=== PATIENT | female | born 1935 | race Caucasian/White ===

== ENCOUNTER 2023-10-19 09:24 | Outpatient (AMB) | payer MEDICARE, SELFPAY ==
--- NOTE | 2023-10-19 09:25 | AM.OFFWIN_ITS ---
Intake Vital Signs 10/19/23 09:26 Height 5 ft 3 in Weight 158 lb BMI 28.0 BP 120/60 Blood Pressure Location Lt brachial Position Sitting Pulse 72 Pulse Source Pulse Oximeter Temp 97.6 F Temp Source Temporal Artery Scan Pulse Oximetry (%) 95 Oxygen Delivery Method Room Air Intake Visit Reasons: EP cold symptoms Intake Note: pt is here today for cold symptoms started 3 days ago Patient Tobacco Use Status: Former Tobacco user Allergies No Known Allergies Allergy (Verified 10/19/23 09:29) Do you need a note to return to daycare/school/sports/work: No HPI HPI Comments History of Present Illness Details 88 y/o female patient who presents to [facility] with c/o URI symptoms that started 3 days ago. Reports runny nose, nasal congestion, sneezing, cough and sire-throat. She has been taking OTC Acetaminophen with minimal relief. Reports fever yesterday around 100.5 F PFSH Social History Patient Tobacco Use Status: Former Tobacco user Review of Systems Const All systems reviewed & are unremarkable except as noted in HPI and below Physical Exam Vital Signs: Last Vital Signs Temp 97.6 F 10/19/23 09:26 Pulse 72 10/19/23 09:26 BP 120/60 10/19/23 09:26 Pulse Ox 95 10/19/23 09:26 Oxygen Delivery Method Room Air 10/19/23 09:26 BMI result Body Mass Index 28.0 Const General: comfortable and no acute distress Nutritional Appearance: obese Orientation/consciousness: patient oriented x3 HEENT Head: Yes normocephalic Ears: external ears normal and TM abnormal obstructed by cerumen bilateral General nose exam: Abnormal mucous membranes and turbinates present boggy and erythematous and Nasal discharge present Face and sinus: Yes sinuses nontender Mouth: moist mucous membranes Throat: Yes posterior oropharynx normal Resp Effort & Inspection: normal respiratory effort, able to speak in complete sentences and Actively coughing Auscultation: clear to auscultation bilaterally, no crackles, no rales, no rhonchi and no wheezes Cardio Rate: regular rate Rhythm: regular rhythm Neuro General: patient oriented x3, gait normal and moves all extremities Psych Speech and movement: Normal speech and movement present Results AMB Rapid Strep AMB Rapid Strep Negative Last Edit by Meme Bansal MA on 10/19/23 09:42 Assessment & Plan Assessment & Plan (1) Upper respiratory infection: Code(s): J06.9 - Acute upper respiratory infection, unspecified Qualifiers: URI type: acute nasopharyngitis (common cold) Qualified Code(s): J00 - Acute nasopharyngitis [common cold] Plan: - OTC cold and flu remedies - Rest and hydrate well with warm fluids - Acetaminophen for pain relief - SARs Orders: Orders SARS-CoV2/FLU/RSV Today J00 - Acute nasopharyngitis [common cold], R09.89 - Other specified symptoms and signs involving the circulatory and respiratory systems Medications: New phenylephrine HCl 1% 2 drps intranasal Q8H 3 days PRN 30 mL 0RF nasal congestion J00 - Acute nasopharyngitis [common cold] BG-gwtcqwcofuezp-FQ 10-325-200 mg/15 mL (Coricidin HBP Max Wswi-Zjp-Ghj) do not exceed 5 doses per 24 hrs 30 mL PO Q4-6H PRN 355 mL 0RF cough J00 - Acute nasopharyngitis [common cold] Coding Level of Care Code Est Pt Level 3 (47956) Diagnoses Acute nasopharyngitis J00 URI type: acute nasopharyngitis (common cold) Time Spent (min) 15
[2023-10-19 09:26] VITALS: BP 120/60; PULSE 72; TEMP 36.4; O2SAT 95; BMI 28.0
== END 2023-10-19 10:29 | disposition home or self-care (01) ==
PROVIDERS: PCP Internal Medicine Endocrinology, Diabetes & Metabolism; Visit Provider Nurse Practitioner Family
DX: J00 Acute nasopharyngitis [common cold] (principal)
CPT/HCPCS: 99213

== ENCOUNTER 2023-10-19 09:52 | Outpatient (REF) | payer MEDICARE, SELFPAY ==
[2023-10-19 14:46] LABS: Influenza A PCR NEGATIVE (Negative); Influenza B PCR NEGATIVE (Negative); Resp Syncy Virus RNA Qual PCR NEGATIVE (Negative); SARS COV2 PCR INHOUSE NEGATIVE (Negative)
== END 2023-10-19 09:53 | disposition home or self-care (01) ==
LOC: HO.LAB 09:52
PROVIDERS: Visit Provider Nurse Practitioner Family
DX: J00 Acute nasopharyngitis [common cold] (principal); R09.89 Other specified symptoms and signs involving the circulatory and respiratory systems; J06.9 Acute upper respiratory infection, unspecified
CPT/HCPCS: 0241U

== ENCOUNTER 2025-02-25 11:15 | Outpatient (AMB) | payer MEDICARE, SELFPAY ==
--- NOTE | 2025-02-25 11:36 | AM.OFFWIN_ITS ---
Intake Vital Signs 02/25/25 11:42 Height 5 ft 3 in Weight 133 lb BMI 23.6 BP 162/60 H Blood Pressure Location Lt brachial Position Sitting Pulse 69 Pulse Source Pulse Oximeter Temp 97.8 F Temp Source Oral Pulse Oximetry (%) 97 Oxygen Delivery Method Room Air Intake Visit Reasons: ep possibe uti Intake Note: pt presents with urine frequency. unable to check medications- pt unsure of what she is taking Patient Tobacco Use Status: Former Tobacco user Allergies No Known Allergies Allergy (Verified 02/25/25 11:43) Do you need a note to return to daycare/school/sports/work: No HPI HPI Comments History of Present Illness Details History - The patient is an 89-year-old female p resenting with frequent urination. - She reports urinating frequently at rust, approximately every hour from 1 AM to 5 AM, without associated burning or pain. - The patient has a history of Diabetes Mellitus, managed with a weekly injection, and her recent blood sugar level was 176 mg/dL. She is not sure what her last A1c. 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 - The patient experienced vertigo in [place], which led to multiple falls and a backache. - She has no back pain, hematuria, CP, S OB, abd pain, vaginal discharge, or bleeding. Physical Exam General: Cooperative, healthy appearing, comfortable, no acute distress and well developed Cardiac: Normal S1 and S2. RRR, no M/R/G noted. Respiratory: Normal respiratory effort and able to speak in complete sentences. Clear to auscultation bilaterally. No w/r/r noted. Skin: No rashes or lesions noted. GI: Normal inspection. Normal BS noted. Soft, non-tender, non-distended. No TTP of all 4 quadrants. No guarding or rebound tenderness noted. Back: Negative CVA bilaterally Patient was informed and verbally consented to the use of an ambient scribe for clinic note documentation during this visit. [facility] Social History Patient Tobacco Use Status: Former Tobacco user Review of Systems Const All systems reviewed & are unremarkable except as noted in HPI and below Physical Exam Vital Signs: Last Vital Signs Temp 97.8 F 02/25/25 11:42 Pulse 69 02/25/25 11:42 BP 162/60 H 02/25/25 11:42 Pulse Ox 97 02/25/25 11:42 Oxygen Delivery Method Room Air 02/25/25 11:42 BMI result Body Mass Index 23.6 Results AMB Random Glucose (hemocue) AMB Random Glucose (hemocue) 134 mg/dL Last Edit by Arlin Root MA on 02/25/25 14:50 AMB Urinalysis, Automated UA Leukoctes 0 Katia/uL Last Edit by Arlin Root MA on 02/25/25 14:55 UA Nitrite Last Edit by Arlin Root MA on 02/25/25 14:55 UA Urobilinogen 0.2 mg/dL Last Edit by Arlin Root MA on 02/25/25 14:55 UA Protein 30 mg/dL Last Edit by Arlin Root MA on 02/25/25 14:55 1+ Arlin Root 02/25/25 14:55 UA pH 6.0 Last Edit by Arlin Root MA on 02/25/25 14:55 UA Blood 0 Vasquez/uL Last Edit by Arlin Root MA on 02/25/25 14:55 UA Specific Stewart 1.025 Last Edit by Arlin Root MA on 02/25/25 14:5 5 UA Ketone Negative Last Edit by Arlin Root MA on 02/25/25 14:55 UA Bilirubin 0 mg/dL Last Edit by Arlin Root MA on 02/25/25 14:55 UA Glucose 0 mg/dL Last Edit by Arlin Root MA on 02/25/25 14:55 Results Reviewed Results Reviewed: Laboratory Last Values Random Glu (Clinic) 134 mg/dL 02/25/25 12:35 Urine pH (Auto) 6.0 02/25/25 14:53 Specific Stewart (Auto) 1.025 02/25/25 14:53 Urine Protein (Auto) 30 mg/dL H* 02/25/25 14:53 Glucose (UA)(Auto) 0 mg/dL 02/25/25 14:53 Urine Ketones (Auto) Negative 02/25/25 14:53 Urine Blood (Auto) 0 Vasquez/uL 02/25/25 14:53 Urine Bilirubin (Auto) 0 mg/dL 02/25/25 14:53 Urine Urobilinogen (Auto) 0.2 mg/dL 02/25/25 14:53 Leukocyte Esterase (Auto) 0 Katia/uL 02/25/25 14:53 Assessment & Plan Assessment & Plan (1) Polyuria: Code(s): R35.89 - Other polyuria Plan Most likely UTI vs hyperglycemia vs polyuria due to HCTZ UA 1+protein glucose 134 in the office plan - limit her fluids after 7pm before bed - check her blood sugars daily and record - continue with her medications - needs to follow up with PCP - may need to see urology Orders: Orders AMB Urinalysis Automated Today Z13.9 - Encounter for screening, unspecified Urine Culture Today N39.0 - Urinary tract infection, site not specified AMB Hemoglobin A1c Today R35.89 - Other polyuria AMB Random Glucose (hemocue) Today R35.89 - Other polyuria Coding Level of Care Code Est Pt Level 3 (77637) Diagnoses Polyuria R35.89
[2025-02-25 11:42] VITALS: BP 162/60; PULSE 69; TEMP 36.6; O2SAT 97; BMI 23.6
== END 2025-02-25 13:22 | disposition home or self-care (01) ==
PROVIDERS: PCP Internal Medicine Endocrinology, Diabetes & Metabolism; Visit Provider Physician Assistant Medical
DX: Z13.9 Encounter for screening, unspecified (principal); R35.89 Other polyuria

== ENCOUNTER 2025-02-25 11:15 | Outpatient (REF) | payer MEDICARE, SELFPAY ==
--- OUTSIDE RECORDS SUMMARY | 2025-02-25 17:55 | XMS_ITS ---
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 Name Role Phone Alcira Watkins Unavailable Unavailable Noni Chacko Unavailable Unavailable Allergies and adverse reactions No Known Allergies Care Team Name Role Address Phone Organization Dates Alcira Watkins PCP [address] [facility] [address], [place], [address], [place] (Office): : [facility] 11/16/2023 - 12/12/2023 Noni Chacko MA, [facility] 11/16/2023 - 12/12/2023 Immunizations Immunization Status Vaccine Details Vaccine Code CodeSystem Date Notes Covid-19 6426-0805 cancelled SARS-COV-2 (COVID-19) vaccine, mRNA, spike protein, LNP, preservative free, 50 mcg/0.5 mL dose 312 CVX created date: 11/07/2023 consent date: 11/07/2023 PVC20 cancelled Pneumococcal conjugate vaccine 20-valent (PCV20), polysaccharide [id number] conjugate, adjuvant, preservative free 216 CVX created date: 11/07/2023 consent date: 11/07/2023 Influenza, high dose seasonal completed Influenza, high-dose, split virus, trivalent, injectable, preservative free 135 CVX created date: 11/07/2023 administere d date: 03/29/2023 Mental Status Section Date Assessment Total Score Description 12/12/2023 BIMS 14 cognitively int act CAM 0 No delirium ind icated PHQ-9 00 11/21/2023 BIMS 14 cognitively int act CAM 0 No delirium ind icated PHQ-9 00 Problems Problem # Description Date of onset Resolved Date Code CodeSystem Concern Status 1 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 12/20/[address] active 2 DIFFICULTY IN WALKING, NOT ELSEWHERE CLASSIFIED 11/16/[address] active 3 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 11/16/[address] active 4 UNSTEADINESS ON FEET 11/16/[address] active 5 HYPOTHYROIDISM, UNSPECIFIED 11/07/[address] active 6 MUSCLE WEAKNESS (GENERALIZED) 11/07/[address] active 7 OTHER ABNORMALITIES OF GAIT AND MOBILITY 11/07/[address] active 8 OTHER REDUCED MOBILITY 11/07/[address] active 9 UNSPECIFIED LACK OF COORDINATION 11/07/[address] active 10 ACUTE BRONCHITIS DUE TO RHINOVIRUS 11/06/[address] active 11 ENCEPHALOPATHY, UNSPECIFIED 11/06/[address] active 12 HYPERLIPIDEMIA, UNSPECIFIED 11/06/[address] active 13 HYPERTENSIVE EMERGENCY 11/06/[address] active 14 MYOCARDIAL INFARCTION TYPE 2 11/06/[address] active Reason for Referral No Reasons for Referral Entered Social History Social History Observation Description Start Date End Date Code Code System Current Smoking Status Tobacco smoking consumption unknown 719538553 SNOMED CT Sex Assigned At Female 1935 43531-3 [facility] Gender Identity Vital Signs Code Code System Vitals Name Values and Units Timing Information 9279-1 [facility] Respiratory Rate Value=18.0 Units=/m in 12/12/2023 8462-4 [facility] Blood Pressure-Diastolic Value=68 Un its=mmHg 12/12/2023 8480-6 [facility] Blood Pressure-Systolic Qdvrr=275 Un its=mmHg 12/12/2023 8310-5 [facility] Body Temperature Value=97.4 Units= F 12/12/2023 8867-4 [facility] Heart rate Value=96.0 Units=/min 96186-3 [facility] O2 % BldC Oximetry Value=98.0 Units= % 12/12/2023 34121-1 [facility] Pain Level Value=0.0 12/12/2023 2339-0 [facility] Blood Sugar Imeqt=744.0 Units=mg/dL 12/04/2023 34739-8 [facility] Weight Biwbo=296.4 Units=Lbs 10/2023 8302-2 [facility] Height Value=65.0 Units=Inches 11/07/2023
--- OUTSIDE RECORDS SUMMARY | 2025-02-25 17:55 | XMS_ITS | Clinical Summary ---
Author Organization [facility] Address [address] [place] [address] Phone Care Team Providers Care Employment Specialist Name Role Phone Chuy Fleming MD Primary Care Provider Allergies No known active allergies Medications isosorbide mononitrate (IMDUR) 60 mg 24 hr tabletIndications:Co ronary arteriosclerosis Take 1 tablet (60 mg total) by mouth 1 (one) time each day. Do not crush or chew. 90 each 3 08/15/19 25 026 Active hydrALAZINE (APRESOLINE) 100 mg tablet Take 1 tablet (100 mg total) by mouth 3 (three) times a day. 180 tablet 3 08/15/19 25 Active levothyroxine (SYNTHROID, LEVOTHROID) 75 mcg tablet Take 1 tablet (75 mcg total) by mouth 1 (one) time each day before breakfast. 90 tablet 3 08/15/19 25 Active metoprolol succinate (TOPROL-XL) 25 mg 24 hr tablet Take 1 tablet (25 mg total) by mouth 1 (one) time each day. Do not crush or chew. Active amLODIPine (NORVASC) 10 mg tablet Take 1 tablet (10 mg total) by mouth 1 (one) time each day. Active aspirin 81 mg EC tablet Take 1 tablet (81 mg total) by mouth 1 (one) time each day. Active polyethylene glycol (Miralax) 17 gram packet Take 17 g by mouth if needed. Active dulaglutide (Trulicity) 0.75 mg/0.5 mL pen injector injection Inject 0.5 mL (0.75 mg total) under the skin every 7 (seven) days. Active fluorometholone (FML) 0.1 % ophthalmic suspension Administer 1 drop into the right eye at bedtime. Active latanoprost (XALATAN) 0.005 % ophthalmic solution Administer 1 drop into both eyes at bedtime. Active acetaminophen (TYLENOL) 325 mg tablet Take 2 tablets (650 mg total) by mouth every 6 (six) hours if needed for mild pain. Active atorvastatin (LIPITOR) 40 mg tablet Take 1 tablet (40 mg total) by mouth at bedtime. 90 tablet 3 12/20/19 25 Active Active Problems Problem Noted Date Diagnosed Date Coronary arteriosclerosis 05/12/2024 Assessment & Plan (12/19/2024 1:34 PM EDT): Patient denies any exertional anginal symptoms at this time. She has history of NSTEMI and nuclear stress testing showing no evidence of ischemia. She continues on medical therapy. Assessment & Plan (08/15/2024 2:57 PM EST): Patient with several non-ST segment myocardial infarction's with nuclear stress testing showing no definitive evidence for ischemia. No symptoms of angina. No heart failure symptoms at this time the patient will continue medical management we are increasing her Imdur back to 60 mg a day. Mainly to help her with her blood pressure management. There is no evidence of orthostasis. Her falls seem to be mechanical and she is in the process of having physical therapy and vestibular therapy performed. We can bring her back in 4 months to reassess her blood pressure to ensure that we are getting that under control. Her episodes of infarct appear to be demand ischemic Orders: isosorbide mononitrate (IMDUR) 60 mg 24 hr tablet; Take 1 tablet (60 mg total) by mouth 1 (one) time each day. Do not crush or chew. HTN (hypertension) 04/12/2024 Assessment & Plan (12/19/2024 1:34 PM EDT): Patient is well pressure is elevated today with a reading of 180/60. She is no longer taking midodrine and is no longer having issues with dizziness. She is on multiple blood pressure agents including hydralazine, amlodipine, isosorbide and metoprolol. Is following with nephrology closely for management of her hypertension. Assessment & Plan (05/12/2024 3:58 PM EST): Patient's blood pressure today is poorly controlled 158/42. She has had several blood pressure medication changes due to LIEN during her hospitalization in October 2023. At her last office visit her Imdur was increased to 60 mg daily. At this time she is at max dose of amlodipine, high dose of hydralazine and 60 mg of Imdur. As the patient had a fall after the last increase of Imdur will hold off on further up titration. Will repeat CMP to evaluate creatinine and have patient keep follow-up in 2 weeks with roof technician for further blood pressure management suggestions. Erika will continue to monitor blood pressure and will have subsequent follow-up with primary putty worker after referral. Orders: Comprehensive metabolic panel; Future Comprehensive metabolic panel NSTEMI (non-ST elevated myoc ardial infarction) (CMS/HCC V24, CMS/HCC V28) 04/12/2024 Assessment & Plan (12/19/2024 1:34 PM EDT): Patient was hospitalized October 2023 and found to have elevated troponins, this was thought to have been secondary to hypertensive emergency. Patient had a subsequent nuclear stress test with nuclear imaging revealing no areas of ischemia or infarction. This test did show heavy coronary artery calcification noted in the LAD/LCx territory, consistent with nonobstructive coronary disease. She is also on low-dose beta-mandi however if she does have history of first- degree AV block. We will continue to monitor this. I have reviewed with the patient the importance of a heart healthy lifestyle which includes eating a low-fat low-salt diet, getting regular exercise, maintaining a healthy weight, not smoking, and following up with routine medical care. Assessment & Plan (05/12/2024 3:58 PM EST): Patient was hospitalized October 2023 and found to have elevated troponins, this was thought to have been secondary to hypertensive emergency. Patient had a subsequent nuclear stress test with nuclear imaging revealing no areas of ischemia or infarction. This test did show heavy coronary artery calcification noted in the LAD/LCx territory, consistent with nonobstructive coronary disease. She continues on aspirin and atorvastatin for cardio protective medications. She was taken off of beta-mandi due to prolonged first-degree AV block. I have reviewed with the patient the importance of a heart healthy lifestyle which includes eating a low-fat low-salt diet, getting regular exercise, maintaining a healthy weight, not smoking, and following up with routine medical care. Bradycardia 04/12/2024 First degree AV block 04/12/2024 Assessment & Plan (05/12/2024 3:58 PM EST): Patient completed recent 24-hour Holter monitor as described above showing supraventricular ectopy 4.1%. She was previously on a beta-mandi that was discontinued during her hospitalization due to first-degree AV block. She had an episode where she did feel her heart racing, yet she checked her pulse and it was at 78 bpm. It was not long-lasting. Advised patient that if she has increased feelings of palpitations or new symptoms to call the office and we will reevaluate with further monitoring and possible EP consult. RBBB 04/12/2024 Hyperlipidemia 03/10/2024 Assessment & Plan (12/19/2024 1:34 PM EDT): Cholesterol levels are well-controlled. Continue with statin as prescribed. Stage 3 chronic kidney disease ([facility] V24, [facility] V28) 10/12/2023 Glaucoma 05/01/2022 Legal blindness 05/01/2022 Carotid artery stenosis 05/01/2022 Hypothyroidism 05/01/2022 Peripheral vascular disease ([facility] V24) 2021 Type 2 diabetes mellitus ([facility] V24, [facility] V 28) 01/27/2022 Resolved Problems Problem Noted Date Diagnosed Date Resolved Date Influenza A 08/26/2024 12/19/2024 Dizziness 06/24/2024 12/19/2024 Coronary artery disease invo lving quileute coronary artery of quileute heart without angina pectoris 05/12/2024 12/19/2024 Assessment & Plan (05/12/2024 3:58 PM EST): See NSTEMI plan Hypertensive emergency 04/12/202412/19 Assessment & Plan (08/15/2024 2:57 PM EST): Not surprisingly the patient's blood pressure is up they cut back on her medication in the emergency room for the inappropriate reason she is not orthostatic based on diastolic blood pressures. TIA (transient ischemic attack) 04/12/2024 06/25/2024 HLD (hyperlipidemia) 04/12/2024 025 Assessment & Plan (05/12/2024 3:58 PM EST): Continue on atorvastatin. LDL cholesterol from February 2024 was 48 which is in goal range. Elevated troponin 04/12/2024 12/19/2024 Essential hypertension 01/27/202212/19 Encounters Date Type Department Care Team Description 01/30/2025 Telephone [facility] [address] [facility] [address] [place] [address] Chuy Fleming MD 12/19/2024 1:10 PM EDT Office Visit [facility] [address] [facility] [address] [place] [address] Aylin Alvarado NP Coronary arteriosclerosis (Primary Dx); Heart murmur; Primary hypertension; NSTEMI (non-ST elevated myocardial infarction) (CMS/HCC V24, CMS/HCC V28); Mixed hyperlipidemia from Last 3 Months Surgical History Surgery Date Site/Laterality Comments CAROTID ENDARTERECTOMY Right CORNEAL TRANSPLANT Right Medical History Medical History Date Comments Hypertensive emergency 03/11/2024 TIA (transient ischemic attack) 03/11/2024 Rbbb 03/11/2024 With Left Anteri or Fascicular Block NSTEMI (non-ST elevated myoc ardial infarction) (CMS/HCC V24, CMS/HCC V28) 03/10/2024 Elevated troponin 03/10/2024 Bradycardia 03/10/2024 Hypertension 03/10/2024 First degree AV block 03/10/2024 HLD (hyperlipidemia) 03/10/2024 Diabetes mellitus (CMS/HCC V 24, CMS/HCC V28) Hypothyroidism Chronic kidney disease, stag e 3 ([facility] V24, [facility] V28) Carotid artery stenosis Dizziness 06/24/2024 Influenza A 08/26/2024 Family History Medical History Relation Name Comments No Known Problems Mother Diabetes Other Relation Name Status Comments Mother Other Social History Tobacco Use Types Packs/Day Years Used Date Smoking Tobacco: Former Cigarettes Smokeless Tobacco: Never Tobacco Cessation:Counseling Given: Not Answered Alcohol Use Standard Drinks/Week Comments Never 0 (1 standard drink = 0.6 oz pur e alcohol) Interpersonal Safety Answer Date Record ed Physical Abuse 08/27/2024 Verbal Abuse 08/27/2024 Comments No Sex and Gender Information Value Date Recorded Sex Assigned at Female 08/26/2024 11:12 AM EST Legal Sex Female 1:36 PM EDT Gender Identity Female 08/26/2024 11:12 AM EST Sexual Orientation Straight 08/26/2024 11 :12 AM EST Obstetrics History Last Filed Vital Signs Vital Sign Reading Time Taken Comments Blood Pressure 180/60 12/19/2024 12:59 PM EDT Pulse 71 12/19/2024 12:59 PM EDT Temperature 36.4 C (97.6 F) 08/27/2024 12:06 PM EST Respiratory Rate 16 08/27/2024 12:06 PM EST Oxygen Saturation 98% 12/19/2024 12:59 PM EDT Inhaled Oxygen Concentration - - Weight 61.9 kg (136 lb 6.4 oz) 12/19/2024 12:59 PM EDT Height 160 cm (5' 3 ) 12/19/2024 12:59 PM EDT Body Mass Index 24.16 12/19/2024 12:59 PM EDT Plan of Treatment Upcoming Encounters Date Type Department Care Team (Late st Contact Info) Description 04/03/2025 9:00 AM EDT Ancillary Procedure [facility] [address] [facility] [address] [place] [address] Health Maintenance Due Date Last Done Comments Diabetes: Annual Foot Exam 1945 Diabetes: Annual Retina Eye Exam 1945 DTaP,Tdap,and Td Vaccines (1 - Tdap) 1954 Pneumococcal Vaccine: 50+ Years (1 of 2 - PCV) 1954 Zoster Vaccines (1 of 2) 1954 RSV Immunization Adult Patients (1 - 1-dose 75+ series) 2010 COVID-19 Vaccine (2 - Pfizer risk series) 05/31/2021 05/10/2021 Medicare Annual Wellness Visit 01/16/2024 Osteoporosis Screening (Bone Density Screening) 01/16/2024 Social Influencers of Health Screening 01/16/2024 Depression Screening 06/25/2024 Diabetes: Blood Sugar Control Test (HGBA1C) 12/22/2024 06/24/2024 Influenza Vaccine (#1) 2025 03/29/2023, 2021 Falls Risk Assessment 08/27/2025 08/27/2024 Hypertension/CHF/CAD Annual BMP Blood Test 08/27/2025 08/27/2024, 08/26/2024, 07/31/2024, Additional history exists Cholesterol Screening (Lipid Panel) 06/25/2029 06/25/2024 HIB Vaccines Aged Out No longer eligi ble based on patient's age to complete this topic HPV Vaccines Aged Out No longer eligi ble based on patient's age to complete this topic Hepatitis A Vaccines Aged Out No long er eligible based on patient's age to complete this topic Hepatitis B Vaccines Aged Out No long er eligible based on patient's age to complete this topic IPV Vaccines Aged Out No longer eligi ble based on patient's age to complete this topic MMR Vaccines Aged Out No longer eligi ble based on patient's age to complete this topic Meningococcal ACWY Vaccine Aged Out N o longer eligible based on patient's age to complete this topic Meningococcal B Vaccine Aged Out No l onger eligible based on patient's age to complete this topic RSV Immunization Patients Under 20 months Aged Out No longer eligible based on patient's age to complete this topic Varicella Vaccines Aged Out No longer eligible based on patient's age to complete this topic Procedures Procedure Name Priority Date/Time Associated Diagnosis Comments BASIC METABOLIC PANEL Routine 08/27/2024 5:59 AM EST LIPID PANEL WITH REFLEX TO DIRECT LDL Routine 06/25/2024 6:15 AM EST HEMOGLOBIN A1C Add-On 06/24/2024 3:16 PM EST from Last 3 Months or Most Recently Relevant to Health Maintenance Results * (ABNORMAL) Basic metabolic panel (08/27/2024 5:59 AM EST) Sodium 141 133 - 145 mmol/L LAB CHEMISTRY METHOD 08/27/2024 8:00 AM [facility] Potassium 3.8 3.5 - 5.5 mmol/L LAB CHEMISTRY METHOD 08/27/2024 8:00 AM [facility] Chloride 106 96 - 110 mmol/L LAB CHEMISTRY METHOD 08/27/2024 8:00 AM [facility] CO2 27 21 - 32 mmol/L LAB CHEMISTRY METHOD 08/27/2024 8:00 AM [facility] Anion Gap 8 3 - 11 LAB CHEMISTRY METHOD 08/27/2024 8:00 AM [facility] Glucose 95 70 - 100 mg/dL LAB CHEMISTRY METHOD 08/27/2024 8:00 AM [facility] BUN 33(H) 5 - 25 mg/dL LAB CHEMISTRY METHOD 08/27/2024 8:00 AM [facility] Creatinine 1.35(H) 0.50 - 1.10 mg/dL LAB CHEMISTRY METHOD 08/27/2024 8:00 AM [facility] eGFR 38(L) >=60 mL/min/1. 73m2 LAB CHEMISTRY METHOD 08/27/2024 8:00 AM [facility] Comment:Calculation based on the Chronic Kidney Disease Epidemiology Collaboration (CKD-EPI) equation refit without adjustment for race. BUN/Creatinine Ratio 24.4 LAB CHEMISTRY METHOD 08/27/2024 8:00 AM [facility] Calcium 8.6 8.5 - 10.5 mg/dL LAB CHEMISTRY METHOD 08/27/2024 8:00 AM [facility] Blood Venous blood specimen / Unknown Venipuncture / Unknown 08/27/2024 5:59 AM EST 08/27/2024 6:54 AM EST us Zayda Whipple MD LAB BLOOD ORDERABLES Final Res ult [facility] [address] [place] [address], [place] [phone] * Lipid panel with reflex to direct LDL (06/25/2024 6:15 AM EST) Cholesterol 92 0 - 200 mg/dL LAB CHEMISTRY METHOD 06/25/2024 7:41 AM EST [facility] Triglycerides 103 0 - 150 mg/dL LAB CHEMISTRY METHOD 06/25/2024 7:41 AM [facility] HDL 48 >=40 mg/dL LAB CHEMISTRY METHOD 06/25/2024 7:41 AM [facility] LDL Calculated 23 0 - 100 mg/dL LAB CHEMISTRY METHOD 06/25/2024 7:41 AM EST [facility] VLDL Cholesterol Juan Daniel 20.6 mg/dL LAB CHEMISTRY METHOD 06/25/2024 7:41 AM EST [facility] Non HDL Chol. (LDL+VLDL) 44 <145 mg/dL LAB CHEMISTRY METHOD 06/25/2024 7:41 AM [facility] Chol/HDL Ratio 1.9 0.0 - 4.4 LAB CHEMISTRY METHOD 06/25/2024 7:41 AM [facility] Blood Venous blood specimen / Unknown Venipuncture / Unknown 06/25/2024 6:15 AM EST 06/25/2024 6:53 AM EST us Brendon Almeida MD LAB BLOOD ORDERABLES Final Result Performing Organization Address [facility]/State/ZIP Co de Phone Number [facility] [address] [place] [address], [place] [phone] * (ABNORMAL) Hemoglobin A1c (06/24/2024 3:16 PM EST) Hemoglobin A1C 8.2(H) <6.5 % LAB CHEMISTRY METHOD 06/26/2024 8:44 AM EST [facility] Mean Bld Glu Estim. 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 Health Care Decision (hx) 11/17/2023 AD SANCHEZ DIRECTIVE Health Care Decision (hx) 11/17/2023 AD SANCHEZ DIRECTIVE Health Care Decision (hx) 11/09/2023 AD SANCHEZ DIRECTIVE Health Care Decision (hx) 11/09/2023 AD SANCHEZ DIRECTIVE Health Care Decision (hx) 11/09/2023 AD SANCHEZ DIRECTIVE * Full Code - Default (Latest Code Status on File) Date Activated Date Inactivated Comments 08/26/2024 1:43 PM 08/27/2024 3:03 PM This is order is used when code status has not been discussed with the patient, or code status is otherwise unknown/unconfirmed To update the patient's code status, place a code status order. Do not modify or discontinue any currently active code status orders. * Full Code - Default Date Activated Date Inactivated Comments 07/30/2024 3:13 PM 07/31/2024 5:23 PM This is order is used when code status has not been discussed with the patient, or code status is otherwise unknown/unconfirmed To update the patient's code status, place a code status order. Do not modify or discontinue any currently active code status orders. * Full Code - Default Date Activated Date Inactivated Comments 06/24/2024 8:04 PM 06/25/2024 6:08 PM This is orde r is used when code status has not been discussed with the patient, or code status is otherwise unknown/unconfirmed To update the patient's code status, place a code status order. Do not modify or discontinue any currently active code status orders. Healthcare Agents on File Name Relationship Healthcare Agent [facility] Dylan Moss (Niece) [facility] Health Care Agent Care Teams Employment Specialist Relationship Specialty Start Date End Date Chuy Fleming MD [address] [place] [address] [address] [place] [address] PCP - General 04/16/24
--- OUTSIDE RECORDS SUMMARY | 2025-02-25 17:55 | XMS_ITS | Clinical Summary ---
Author Organization [facility] Address [address] [address] Phone Care Team Providers Care Agronomy Advisor Name Role Phone Chuy Fleming MD Primary Care Provider Allergies No known active allergies Medications levothyroxine (SYNTHROID, LEVOTHROID) 75 MCG tablet Take 75 mcg by mouth Active aspirin (ST SERA) 81 MG EC tablet Take 81 mg by mouth in the morning. 4 Active amLODIPine (NORVASC) 10 MG tablet Take 10 mg by mouth in the morning. 5 Active atorvastatin (LIPITOR) 40 MG tablet Take 40 mg by mouth in the morning. Active Dulaglutide (Trulicity) 0.75 MG/0.5ML solution auto-injector Inject 0.75 mg under the skin Active fluorometholone (FML) 0.1 % ophthalmic suspension INSTILL 1 DROP IN THE RIGHT EYE DAILY Active hydrALAZINE 100 MG tablet Take 100 mg by mouth in the morning and 100 mg at noon and 100 mg in the evening. 4 Active isosorbide mononitrate (IMDUR) 60 MG 24 hr tablet Take 1 tablet by mouth 1 (one) time each day 4 Active latanoprost (XALATAN) 0.005 % ophthalmic solution Administer 1 drop into affected eye(s) Active polyethylene glycol (GLYCOLAX) 17 GM/SCOOP powder Take 17 g by mouth 1 (one) time each day Active metoprolol succinate XL (Toprol XL) 25 MG 24 hr tablet Take 1 tablet (25 mg total) by mouth 1 (one) time each day Do not crush or chew. 30 tablet 11 5 06/30/19 26 Active Active Problems Problem Noted Date Diagnosed Date Coronary arteriosclerosis 05/12/2024 Transient cerebral ischemia 03/11/2024 Right bundle-branch block 03/11/2024 Overview (05/30/2024): WITH LEFT ANTERIOR FASCICULAR BLOCK Hypertensive emergency 03/11/2024 Myocardial infarction 03/10/2024 Overview (05/30/2024): Last Assessment & Plan: Was hospitalized October 2023 and found to have [...] and following up with routine medical care. Hypertensive disorder 03/10/2024 Overview (05/30/2024): Last Assessment & Plan: Patient's blood pressure today is poorly controlled 166/60. She had several medication changes during her hospitalization due to acute kidney injury. Her last noted creatinine in October 2023 was 1.52. At this time will increase her Imdur to 60 mg daily. I have also placed a consult to nephrology to further aid in blood pressure management and medication regimen recommendations. Patient's niece monitors blood pressure at home she will notify the office if she is still having elevated blood pressures with the increase in Imdur. BMP ordered to monitor kidney function. Hyperlipidemia 03/10/2024 Overview (05/30/2024): Last Assessment & Plan: Patient continues on atorvastatin 40 mg daily. No recent lipid profile in the system. Lipid panel ordered to assess if cholesterol levels are in range. First degree atrioventricular block 03/10/2024 Overview (05/30/2024): Last Assessment & Plan: Patient patient has a first-degree AV block on EKG today. It was noted during her consult in October [address] Dunlap that she was experiencing Mobitz type I as well as atrial tachycardia on the cardiac monitor. Patient denies any symptoms such as palpitations, dizziness or lightheadedness. To further evaluate this we will arrange to do outpatient Holter monitor (24 hr) as was recommended during her consult. Bradycardia 03/10/2024 Encounters Date Type Department Care Team Description 01/05/2025 4:30 PM EDT Office Visit [facility] [address] [phone] Kelton Tinoco MD Stage 3 chronic kidney disease, not otherwise specified (HCC) (Primary Dx); Hypertension; Diabetes mellitus, not otherwise specified (HCC); Albuminuria, not otherwise specified from Last 3 Months Social History Tobacco Use Types Packs/Day Years Used Date Smoking Tobacco: Never Assessed Comments Unknown Sex and Gender Information Value Date Recorded Sex Assigned at Not on file Legal Sex Female 3:17 PM EDT Gender Identity Not on file Sexual Orientation Not on file Last Filed Vital Signs Vital Sign Reading Time Taken Comments Blood Pressure 138/62 01/05/2025 4:37 PM EDT Pulse 65 01/05/2025 4:37 PM EDT Temperature - - Respiratory Rate - - Oxygen Saturation - - Inhaled Oxygen Concentration - - Weight 63 kg (139 lb) 01/05/2025 4:37 PM EDT Height 158.8 cm (5' 2.5 ) 05/30/2024 11:23 AM ES T Body Mass Index 25.02 05/30/2024 11:23 AM EST Plan of Treatment Upcoming Encounters Date Type Department Care Team (Late st Contact Info) Description 07/06/2025 4:00 PM EST Office Visit [facility] [address] [phone] Kelton Tinoco MD [address] [phone] Health Maintenance Due Date Last Done Comments Pneumococcal Vaccine: 50+ Ye ars (1 of 2 - PCV) 1954 Diabetes: Ophthalmology Exam 05/30/2024 Diabetes: Pedal Pulse Checked 05/30/2024 Diabetes: Sensory Foot Exam 05/30/2024 Diabetes: Visual Foot Exam 05/30/2024 Diabetes: Hemoglobin A1C 09/22/2024 06/24/2024 Influenza Vaccine (#1) 2025 03/29/2023 Hepatitis B Vaccine Aged Out No longe r eligible based on patient's age to complete this topic Procedures Procedure Name Priority Date/Time Associated Diagnosis Comments PROTEIN ELECTROPHORESIS, SERUM Routine 12/19/2024 7:54 AM EDT PTH, INTACT Routine 12/19/2024 7:54 AM EDT VITAMIN D 25 HYDROXY Routine 12/19/2024 7:54 AM EDT URINE ALBUMIN / CREATININE RATIO Routine 12/19/2024 7:54 AM EDT RENAL FUNCTION PANEL Routine 12/19/2024 7:54 AM EDT URINALYSIS WITH MICROSCOPIC Routine 12/19/2024 7:54 AM EDT MICROSCOPIC EXAMINATION - DO NOT USE Routine 12/19/2024 7:54 AM EDT from Last 3 Months Results * Microscopic Examination (12/19/2024 7:54 AM EDT) WBC, Urine None seen 0 - 5 /hpf [facility] RBC, Urine 0-2 0 - 2 /hpf [facility] Squamous Epithelial, Urine 0-10 0 - 10 /hpf [facility] Casts None seen None seen /lpf [facility] Bacteria, Urine None seen None seen/Few [facility] 12/19/2024 7:54 AM EDT 12/19/2024 Kelton Tinoco MD LAB MICROBIOLOGY - GENERAL ORDER JOVANY Final Result Performing Organization Address City/[facility]/ZIP Co de Phone Number [employer] [facility] [address] [place] [address] * (ABNORMAL) Urine Albumin / Creatinine Ratio (12/19/2024 7:54 AM EDT) Creatinine, Ur 52.9 Not Estab. mg/dL [facility] Albumin, Urine 1,515.2 Not Estab. ug/mL [facility] Comment: Results confirmed on dilution. Albumin/Creatin ine Ratio 2,864(H) 0 - 29 mg/g creat [facility] Comment: Normal: 0 - 29 Moderately increased: 30 - 300 Severely increased: >300 12/19/2024 7:54 AM EDT 12/19/2024 Kelton Tinoco MD LAB URINE ORDERABLES Final Resul t Performing Organization Address City/[facility]/ZIP Co de Phone Number [facility] [address] [place] [address] * Vitamin D 25 Hydroxy (12/19/2024 7:54 AM EDT) Vitamin D, 25-OH, Total 33.9 30.0 - 100.0 ng/mL [facility] Comment: Vitamin D deficiency has been defined by the [place] [employer] and an Endocrine Society practice guideline as a level of serum 25-OH vitamin D less than 20 ng/mL (1,2). The Endocrine Society went on to further define vitamin D insufficiency as a level between 21 and 29 ng/mL (2). 1. IOM ([place] [employer]). 2010. Dietary reference intakes for calcium and D. [place]: The National Academies Press. 2. Devon MF, Dari NC, Jose M MENDOZA, et al. Evaluation, treatment, and prevention of vitamin D deficiency: an Endocrine Society clinical practice guideline. JCEM. 2010; 96(7):1911-30. 12/19/2024 7:54 AM EDT 12/19/2024 us Kelton Tinoco MD LAB BLOOD ORDERABLES Final Resul t [facility] [address] [place] [address] * (ABNORMAL) Urinalysis with microscopic (12/19/2024 7:54 AM EDT) Specific [place], Urine 1.014 1.005 - 1.030 [facility] pH Urine 6.0 5.0 - 7.5 [facility] [phone] Color, Urine Yellow Yellow [facility] Appearance Urine Clear Clear [facility] WBC Esterase Urine Negative Negative [facility] Protein, Ur 3+(A) Negative/Tra ce [facility] Glucose, Ur Negative Negative [facility] Ketones, Urine Negative Negative [facility] [phone] Blood Urine Negative Negative [facility] Bilirubin Urine Negative Negative [facility] Urobilinogen Urine 0.2 0.2 - 1.0 mg/dL [facility] Nitrite, Urine Negative Negative [facility] Microscopic Examination See below: [facility] [phone] Comment:Microscopic was roberto cated and was performed. 12/19/2024 7:54 AM EDT 12/19/2024 us Kelton Tinoco MD LAB URINE ORDERABLES Final Resul t [facility] [address] [place] [address] * Protein electrophoresis, serum (12/19/2024 7:54 AM EDT) Total Protein 6.4 6.0 - 8.5 g/dL [facility] Albumin 3.8 2.9 - 4.4 g/dL [facility] [phone] Zevsb-2-Pptixkyn 0.2 0.0 - 0.4 g/dL [facility] Upcow-3-Gydihsms 0.9 0.4 - 1.0 g/dL [facility] Beta Globulin 0.8 0.7 - 1.3 g/dL [facility] Gamma Globulin in Serum 0.6 0.4 - 1.8 g/dL [facility] M-Farzad Serum Not Observed Not Observed g/dL [facility] Globulin, Total 2.6 2.2 - 3.9 g/dL [facility] A/G Ratio 1.5 0.7 - 1.7 [facility] Please note Comment [facility] [phone] Comment: Protein electrophoresis scan will follow via computer, mail, or intervention nurse delivery. PDF . [facility] 12/19/2024 7:54 AM EDT 12/19/2024 Kelton Tinoco MD LAB BLOOD ORDERABLES Final Resul t [facility] [address] [place] [address] * PTH, Intact (12/19/2024 7:54 AM EDT) PTH 58 15 - 65 pg/mL [facility] 12/19/2024 7:54 AM EDT 12/19/2024 us Kelton Tinoco MD LAB BLOOD ORDERABLES Final Resul t [facility] [address] [place] [address] * (ABNORMAL) Renal Function Panel (12/19/2024 7:54 AM EDT) Glucose 171(H) 70 - 99 mg/dL [facility] BUN 20 8 - 27 mg/dL [facility] Creatinine 1.26(H) 0.57 - 1.00 mg/dL [facility] eGFR CKD-EPI CR 2020 41(L) >59 mL/min/1.7 3 [facility] BUN/Creatinine Ratio 16 12 - 28 [facility] Sodium 140 134 - 144 mmol/L [facility] Potassium 4.1 3.5 - 5.2 mmol/L [facility] Chloride 103 96 - 106 mmol/L [facility] Bicarbonate (CO2) 22 20 - 29 mmol/L [facility] Calcium 9.6 8.7 - 10.3 mg/dL [facility] Albumin 4.2 3.7 - 4.7 g/dL [facility] Phosphorus 3.8 3.0 - 4.3 mg/dL [facility] 12/19/2024 7:54 AM EDT 12/19/2024 us Kelton Tinoco MD LAB BLOOD ORDERABLES Final Resul t [facility] [address] [place] [address] from Last 3 Months Insurance [facility] Care Teams Agronomy Advisor Relationship Specialty Start Date End Date Chuy Fleming MD [address] [place] [address] [address] [place] [address] PCP - General Endocrinology 04/08/24
--- OUTSIDE RECORDS SUMMARY | 2025-02-25 17:55 | XMS_ITS | Continuity of Care Document ---
Author Organization [facility] [address] [facility] [address] [place] [address] Phone [phone] Care Team Providers Care Ux Developer Name Role Phone Chuy Fleming M.D. Care Team Information Re ceiver [phone] Problems Active Problems Provider Date Type 2 diabetes mellitus Chuy Fleming M.D. Onset: 01/27/2022 Essential hypertension Chuy Fleming M.D. O nset: 01/27/2022 Hypothyroidism Chuy Fleming M.D. Onset: 1 07/01/2021 Peripheral vascular disease Roshni Almodovar Onset: 05/01/2022 Legal blindness Chuy Fleming M.D. Onset: 1 07/01/2021 Carotid artery stenosis Chuy Fleming M.D. Onset: 05/01/2022 Total hysterectomy with aleta carlos of both tubes and ovaries Chuy Fleming M.D. Onset: 05/01/2022 Glaucoma Chuy Fleming M.D. Onset: 1 07/01/2021 Chronic kidney disease stage 3 Chuy Fleming M.D. Onset: 10/12/2023 Social History Type Date Description Comments Sex Female Sex Unknown Lives With Alone ETOH Use Denies alcohol use Tobacco Use Start: Unknown End: Unknown Patient is a former smoker Smoking Status Reviewed: 12/23/24 Patient is a former smoker Allergies and adverse reactions Description No Known Drug Allergies Medications Active Medications SIG Qnty Indications Order ing Provider Date Isosorbide Mononitrate ER60mg Tablets ER 24HR 1 tab by mouth every day Chuy Fleming M.D. 04/04/2024 Trulicity0.75mg/0.5M L Solution Auto-Inject Inject 1 Pen Subcutaneously Once A Week 6units Chuy Fleming M.D. 12/17/2023 Hydralazine SYB855ud Tablets 1 tablet by mouth tid 270tabs Chuy Fleming M.D. 12/17/2023 Atorvastatin Ejshxte03se Tablets Take 1 Tablet By Mouth Every Day 90tabs Chuy Fleming M.D. 12/14/20[address]-Qug[address] 1 by mouth every day 90tabs Chuy Fleming M.D. 12/14/2023 Freestyle Lite TestStrip Test Twice A Day 100units E11.9 Cuhy Fleming M.D. Amlodipine Mllbeyfu34qu Tablets Take 1 Tablet By Mouth Every Day 90tabs Chuy Fleming M.D. Latanoprost0.005% Solution Instill 1 Drop Into Both Eyes AT Bedtime Unknown Levothyroxine Uwbaps81qzv Tablets Take 1 Tablet By Mouth Every Day 90tabs Chuy Fleming M.D. History Medications Ldigecqrxwfbnqeqwjz57ji Tablets 1 tablet by mouth every day 90tabs Chuy Fleming M.D. 04/04/2024 - 07/15/2024 Vital Signs Date Vital Result Comment 12/23/2024 4:05pm BP Systolic 145 mmHg BP Diastolic 60 mmHg Heart Rate 72 /min Height 64 inches 5'4 Weight 137.00 lb BMI (Body Mass Index) 23.5 kg/m2 Results Test Acquired Date Facility Test Result H/L Range Note Glucose Fingerstick 12/23/2024 Inhouse Glucose Fingerstick 227 Hemoglobin A1c 12/23/2024 Inhouse Hemoglobin A1c 6.8 TSH Rfx on Abnormal to Free T4 12/23/2024 [facility] TSH Rfx on Abnormal to Free T4 3.460 uIU/mL 0.450-4. 500 Glucose Fingerstick 07/15/2024 Inhouse Glucose Fingerstick 165 Hemoglobin A1c 07/15/2024 Inhouse Hemoglobin A1c 7.6% Glucose Fingerstick 04/04/2024 Inhouse Glucose Fingerstick 265 Hemoglobin A1c 04/04/2024 Inhouse Hemoglobin A1c 7.3% Glucose Fingerstick 01/02/2024 Inhouse Glucose Fingerstick 221 Hemoglobin A1c 01/02/2024 Inhouse Hemoglobin A1c 6.8% Comp. Metabolic Panel (14) 12/14/2023 [facility] Glucose 170 mg/dL High 70-99 BUN 20 mg/dL 8-27 Creatinine 1.22 mg/dL High 0.57-1.0 0 eGFR 43 mL/min/1. 73 Low >59 BUN/Creatinine Ratio 16 12-28 Sodium 141 mmol/L 134-144 Potassium 3.6 mmol/L 3.5-5.2 Chloride 101 mmol/L 96-106 Carbon Dioxide, Total 24 mmol/L 20-29 Calcium 9.3 mg/dL 8.7-10.3 Protein, Total 5.4 g/dL Low 6.0-8.5 Albumin 3.9 g/dL 3.7-4.7 Globulin, Total 1.5 g/dL 1.5-4.5 Bilirubin, Total 0.8 mg/dL 0.0-1 .2 Alkaline Phosphatase 74 IU/L 44-121 Ast (Sgot) 20 IU/L 0-40 Alt (SGPT) 13 IU/L 0-32 CBC With Differential/Plat elet 12/14/2023 [facility] WBC 5.7 x10E3/uL 3.4-10.8 RBC 3.43 x10E6/uL Low 3.77-5.2 8 Hemoglobin 10.8 g/dL Low 11.1-15. 9 Hematocrit 31.9 % Low 34.0-46. 6 MCV 93 fL 79-97 MCH 31.5 pg 26.6-33. 0 MCHC 33.9 g/dL 31.5-35. 7 RDW 13.0 % 11.7-15. 4 Platelets 263 x10E3/uL 150-450 Neutrophils 77 % Not Estab. Lymphs 13 % Not Estab. Monocytes 8 % Not Estab. Eos 1 % Not Estab. Basos 1 % Not Estab. Immature Cells TNP Neutrophils (Absolute) 4.4 x10E3/uL 1.4-7.0 Lymphs (Absolute) 0.7 x10E3/uL 0.7-3.1 Monocytes(Absol u te) 0.4 x10E3/uL 0.1-0.9 Eos (Absolute) 0.1 x10E3/uL 0.0-0.4 Baso (Absolute) 0.1 x10E3/uL 0.0-0.2 Immature Granulocytes 0 % Not Estab. Immature Grans (Abs) 0.0 x10E3/uL 0.0-0.1 NRBC TNP Hematology Comments: TNP TSH Rfx on Abnormal to Free T4 12/14/2023 [facility] TSH Rfx on Abnormal to Free T4 3.090 uIU/mL 0.450-4. 500 Ferritin 12/14/2023 [facility] Ferritin 66 ng/mL 15-150 Iron And Tibc 12/14/2023 [facility] Iron Bind.Cap.(Tibc) 288 g/dL 250-450 Uibc 256 g/dL 118-369 Iron 32 g/dL 27-139 Iron Saturation 11 % Low 15-55 Hemoglobin A1c 10/12/2023 Inhouse Hemoglobin A1c 6.1% Glucose Fingerstick 10/12/2023 Inhouse Glucose Fingerstick 103 Comprehensive Metabolic Panl 07/09/2023 [facility] Glucose 170 mg/dL High (70-99) BUN 27 mg/dL High (8-23) Creatinine 1.6 mg/dL High (0.5-1.0 ) Sodium 143 mmol/L (133-145 ) Potassium 4.8 mmol/L (3.6-5.2 ) Chloride 107 mmol/L (98-107) Bicarbonate 24 mmol/L (22-29) Anion Gap 12 (4-17) Albumin 3.9 GM/DL (3.4-4.8 ) Calcium 9.8 mg/dL (8.6-10. 5) Bilirubin,Total 0.7 mg/dL (0-1.2 ) Total Protein 5.9 GM/DL Low (6.2-8.2 ) Ag Ratio 2.0 Ast 14 U/L (0-32) Alk Phos 65 U/L (35-104) Alt 9 U/L (0-33) Estimated GFR Creatinine 30 ML/MIN/1. 73M2 1 Complete Abc With Diff 07/09/2023 [facility] WBC 8.7 K/MM3 (4.0-11. 0) RBC 3.64 M/MM3 Low (4.20-5. 40) HGB 11.2 GM/DL Low (11.7-15 .5) HCT 34.6 % Low (35.7-45 .8) MCV 95.1 FL (80.0-10 0.0) MCH 30.8 pg (27.0-34 .0) MCHC 32.4 g/dL Low (33.0-37 .0) PLT 233 K/MM3 (150-460 ) RDW-SD 48.5 FL High (<47.0) MPV 10.7 FL (9.4-12. 4) Automated NRBC 0.0 #/100WBC' S Abs. NRBC 0.0 K/MM3 Neut # 6.3 K/MM3 (1.3-7.0 ) Lymph # 1.2 K/MM3 (0.8-3.1 ) [place]# 0.7 K/MM3 (0.4-0.9 ) Eo # 0.4 K/MM3 (0.0-0.4 ) Baso # 0.1 K/MM3 (0.0-0.1 ) Abs. Imm Gran 0.0 K/MM3 Neut 72.6 % (44-76) Lymph 13.3 % Low (15-43) Monocyte 8.1 % (4.5-10. 5) Eo 4.9 % (0-6) Baso 0.8 % (0-2) Imm Gran 0.3 % TSH With Reflex To FT4 07/09/2023 [facility] TSH With Reflex To FT4 6.07 uIU/mL High (0.4-4.2 ) Free T4 07/09/2023 [facility] Free T4 1.60 ng/dL (0.70-1. 80) Glucose Fingerstick 07/09/2023 Inhouse Glucose Fingerstick 171 Hemoglobin A1c 07/09/2023 Inhouse Hemoglobin A1c 6.3% Comprehensive Metabolic Panl 03/09/2023 [facility] Glucose 113 mg/dL High (70-99) BUN 21 mg/dL (8-23) Creatinine 1.5 mg/dL High (0.5-1.0 ) Sodium 143 mmol/L (133-145 ) Potassium 4.9 mmol/L (3.6-5.2 ) Chloride 108 mmol/L High (98-107) Bicarbonate 23 mmol/L (22-29) Anion Gap 12 (4-17) Albumin 4.3 GM/DL (3.4-4.8 ) Calcium 10.0 mg/dL (8.6-10. 5) Bilirubin,Total 0.6 mg/dL (0-1.2 ) Total Protein 5.9 GM/DL Low (6.2-8.2 ) Ag Ratio 2.7 Ast 16 U/L (0-32) Alk Phos 71 U/L (35-104) Alt 11 U/L (0-33) Estimated GFR Creatinine 35 ML/MIN/1. 73M2 2 Complete Abc With Diff 03/09/2023 [facility] WBC 7.7 K/MM3 (4.0-11. 0) RBC 3.82 M/MM3 Low (4.20-5. 40) HGB 11.4 GM/DL Low (11.7-15 .5) HCT 36.9 % (35.7-45 .8) MCV 96.6 FL (80.0-10 0.0) MCH 29.8 pg (27.0-34 .0) MCHC 30.9 g/dL Low (33.0-37 .0) PLT 229 K/MM3 (150-460 ) RDW-SD 49.1 FL High (<47.0) MPV 10.9 FL (9.4-12. 4) Automated NRBC 0.0 #/100WBC' S Abs. NRBC 0.0 K/MM3 Neut # 5.8 K/MM3 (1.3-7.0 ) Lymph # 1.1 K/MM3 (0.8-3.1 ) [place]# 0.5 K/MM3 (0.4-0.9 ) Eo # 0.2 K/MM3 (0.0-0.4 ) Baso # 0.1 K/MM3 (0.0-0.1 ) Abs. Imm Gran 0.0 K/MM3 Neut 75.7 % (44-76) Lymph 14.1 % Low (15-43) Monocyte 6.5 % (4.5-10. 5) Eo 2.5 % (0-6) Baso 0.9 % (0-2) Imm Gran 0.3 % TSH With Reflex To FT4 03/09/2023 [facility] TSH With Reflex To FT4 3.97 uIU/mL (0.4-4.2 ) Glucose Fingerstick 03/09/2023 Inhouse Glucose Fingerstick 139 Hemoglobin A1c 03/09/2023 Inhouse Hemoglobin A1c 6.5% Glucose Fingerstick 05/01/2022 Inhouse Glucose Fingerstick 139 Hemoglobin A1c 05/01/2022 Inhouse Hemoglobin A1c 6.5% Hemoglobin A1c 01/27/2022 Inhouse Hemoglobin A1c 6.2% Glucose Fingerstick 01/27/2022 Inhouse Glucose Fingerstick 90 1 Creatinine based est imated glomerular filtration (eGFR) in adults is calculated using the National [employer] recommended 2020 CKD-EPI equation. Estimates GFR from serum creatinine, age and sex. 2 Creatinine based est imated glomerular filtration (eGFR) in adults is calculated using the National [employer] recommended 2020 CKD-EPI equation. Estimates GFR from serum creatinine, age and sex. Procedures Date Code Description Status 02/27/2023 NSHOWOFF No Show Office Visit Complet ed Medical Devices Description No Information Available Encounters Type Date Location Provider Dx Diagnosis Office Visit 12/23/2024 4:00p Main Office Chuy Fleming M.D. E11.9 Type 2 diabetes mellitus without complications N18.30 Chronic kidney disea se, stage 3 unspecified I10 Essential (primary) hypertension I65.23 Occlusion and stenos is of bilateral carotid arteries R42 Dizziness and giddin ess I73.9 Peripheral vascular disease, unspecified Assessments Date Code Description Provider 12/23/2024 E11.9 Type 2 diabetes mellitus without complications Chuy Fleming M.D. 12/23/2024 N18.30 Chronic kidney disease stage 3 Chuy Fleming M.D. 12/23/2024 I10 Hypertensive disorder Chuy lord M.D. 12/23/2024 I65.23 Carotid artery stenosis Chuy Fleming M.D. 12/23/2024 R42 Vertigo Chuy ahn M.D. 12/23/2024 I73.9 Peripheral vascular disease Chuy Fleming M.D. Plan of Treatment Future Appointment(s):* 05/13/2025 10:45 am - Chuy Fleming M.D. at Main Office 12/23/2024 - Chuy Fleming M.D.* E11.9 Type 2 diabetes mellitus without complications * N18.30 Chronic kidney disease stage 3 * I10 Hypertensive disorder * I65.23 Carotid artery stenosis * R42 Vertigo * I73.9 Peripheral vascular disease Functional Status Description No Information Available Mental Status Description No Information Available Referrals Refer to Dr Reason for Referral Status Appt [facility] (New Patients) HYPERTENSION Closed 03/12/2024 [address] [facility] [address] [place] [address] [phone]
== END 2025-02-25 11:16 | disposition home or self-care (01) ==
LOC: HO.LNP 11:15
PROVIDERS: PCP Internal Medicine Endocrinology, Diabetes & Metabolism; Visit Provider Physician Assistant Medical
DX: R35.89 Other polyuria (principal); Z13.89 Encounter for screening for other disorder
CPT/HCPCS: 81003; 82948; 87086; 99212